=== PATIENT | male | born 2000 | race African-American/Black ===

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

== ENCOUNTER 2019-06-11 04:23 | Emergency (ER) | payer MEDICAID ==
[~2019-06-11] VITALS: Ht 193 cm; Wt 81.6 kg
[2019-06-11 04:36] VITALS: BP 140/95
== END 2019-06-11 07:14 | disposition home or self-care (01) ==
LOC: ER 04:28
DX: S60.222A Contusion of left hand, initial encounter (principal); F17.210 Nicotine dependence, cigarettes, uncomplicated; Y08.89XA Assault by other specified means, initial encounter; Y93.89 Activity, other specified; Y92.89 Other specified places as the place of occurrence of the external cause; Y99.8 Other external cause status
CPT/HCPCS: 73110; 73130